=== PATIENT | male | born 1955 | race Caucasian/White ===

== ENCOUNTER 2017-03-11 06:57 | Day surgery (SDC) | payer OTHER ==
[~2017-03-11] VITALS: Ht 182.9 cm; Wt 109.1 kg
[~2017-03-11 06:57] MED LIST: GLIM1TAB2 PO; LIDOCAINE 1% (10mg/ml) 2ml SDV INJ ONE; NORMAL SALINE 1,000 ML IV ONE
--- OUTSIDE RECORDS SUMMARY | 2017-03-11 07:01 | XMS REPORT | Referral Summary ---
Author Author [facility], [facility] Organization [facility] Address Unknown Phone Unavailable Care Team Providers Care Sail Cutter Name Role Phone Miquel Durbin Primary Care Physician [phone] Encounter VC Date(s): 05/02/15 - 05/02/15 [facility] [address] [place] [address] Discharge Diagnosis: DM II (diabetes mellitus, type II), controlled Discharge Diagnosis: Albuminuria Discharge Diagnosis: Plantar wart of right foot Discharge Disposition: 01-Home or Self Care Attending Physician: Miquel Durbin DO Admitting Physician: Miquel Durbin DO Vital Signs Most recent to 1 oldest [Reference Range]: Temperature Tympanic 36.5 degC [36.6-38.1 degC] *LOW* (05/02/15 8:10 AM) Peripheral Pulse 68 bpm Rate [60-100 bpm] (05/02/15 8:10 AM) Blood Pressure 122/68 mmHg [90-140/60-90 mmHg] (05/02/15 8:10 AM) SpO2 96 % (05/02/15 8:10 AM) Problem List No data available for this section Allergies, Adverse Reactions, Alerts No Known Medication Allergies Medications aspirin 81 mg oral tablet mg tabs, Oral, Daily, 0 Refill(s) Start Date: 11/01/15 Status: Ordered Glucometer (DME) DME Item Accu-Chek Sofia meter To test 1 day per week and prn Diag E11.9, See Instructions, # 1 Each, 0 Refill(s), Pharmacy: [facility] #[id number], Accu-Chek Sofia meter; To test 1 day per week and prn; Diag E11.9, Supply Start Date: 11/04/15 Status: Ordered metFORMIN 500 mg oral tablet 500 mg 1 tabs, Oral, BID, # 180 tabs, 3 Refill(s), Pharmacy: [facility] # [id number], 1 tabs Oral BID Start Date: 11/01/15 Status: Ordered Miscellaneous DME DME Item Accue-chek sofia meter tests strips or comparable Diag - E11.9, See Instructions, # 50 Each, 5 Refill(s), Pharmacy: [facility] #[id number], Accue- chek sofia meter tests strips or comparable; Diag - E11.9, Supply Start Date: 11/03/15 Status: Ordered Results No data available for this section Immunizations Vaccine Date Refusal Reason tetanus/diphth/pertuss (Tdap) adult/adol 11/19/14 Procedures Procedure Date Related Diagnosis Body Site Destruction (eg, laser surgery, 05/02/15 electrosurgery, cryosurgery, chemosurgery, surgical curettement), of benign lesions other than skin tags or cutaneous vascular proliferative lesions; up to 14 lesions Social History Social History Type Response Smoking Status Current every day smoker Assessment and Plan Extracted from: Title: Office Visit Note Author: Miquel Durbin DO Date: 05/02/15 Assessment/Plan Albuminuria 1. He is having more albuminuria than previous. 2. At loss office visit I had recommended an REED inhibitor which he declined. 3. We'll refer him to nephrology for further evaluation and recommendations. Ordered: Office Visit Level 4 Est 83595 DM II (diabetes mellitus, type II), controlled 1. His blood sugars are well controlled at this time, hemoglobin A1c is 6.2 this is slightly increased from 6.0 , 6 months ago. 2. Recommend recheck hemoglobin A1c, complete metabolic profile, and lipid profile in 6 months. 3. Continue checking fasting blood sugars once per week, follow-up if blood sugars are running high. Ordered: Office Visit Level 4 Est 17788 Plantar wart of right foot 1. Plantar wart s were debulked using a derma blade followed by cryotherapy treatment. 2. Patient tolerated treatment well, wound care instructions provided. Ordered: Destruction, Of Flat Warts, Molluscum Contagiosum, Or Milia; Up To 14 Lesions 65612 Office Visit Level 4 Est 34176
--- OUTSIDE RECORDS SUMMARY | 2017-03-11 07:01 | XMS REPORT | Continuity of Care Document ---
Author Author [facility] Organization [facility] Address Unknown Phone Unavailable Allergies Active Description Code Type Severity Reaction Onset Reported/Identified Relationship to Patient Clinical Status Yes No Known Medication Allergies NKMA N/A N/A 05/03/2014 Medications Problems Procedures Results Encounters ACCT No. Visit Date/Time Discharge Status Pt. Type Provider Facility Loc./Unit Complaint [id number] 01/28/2017 08:03:00 2016 23:59:00 DIS Outpatient Miquel Durbin [facility] 6 month CDM DM [id number] 12/05/2016 10:52:00 2016 23:59:00 DIS Outpatient Miquel Durbin [facility] FM cough.congestion.fatique.headache [id number] 07/30/2016 07:59:00 2015 23:59:00 DIS Outpatient Miquel Durbin [facility] FM TCPA 3 month CDM DM [id number] 04/27/2016 07:45:00 2015 23:59:00 DIS Outpatient Miquel Durbin [facility] FM 6MTH WME CDM DM2 FROM 1.5.16 [id number] 05/02/2015 08:05:00 2014 23:59:00 DIS Outpatient Miquel Durbin [facility] New FM 6MTH RCK CDM DM [id number] 11/19/2014 08:19:00 2014 23:59:00 DIS Outpatient Miquel Durbin [facility] New FM MED CK [id number] 11/01/2015 08:07:00 ACT Outpatient Miquel Durbin [facility] FM 6 mth CDM
--- OUTSIDE RECORDS SUMMARY | 2017-03-11 07:02 | XMS REPORT | Referral Summary ---
Author Author [facility] Organization [facility] Address Unknown Phone Unavailable Care Team Providers Care Program Project Manager Name Role Phone Miquel Durbin Primary Care Physician [phone] Encounter VC Date(s): 05/02/15 - 05/02/15 [facility] [address] [place] [address] Discharge Diagnosis: DM II (diabetes mellitus, [...] Reactions, Alerts No Known Medication Allergies Medications FREESTYLE 28G LANCETS 0 Refill(s) Start Date: 05/03/14 Status: Ordered metFORMIN 500 mg oral tablet 1 tabs, Oral, BID, # 180 tabs, 2 Refill(s), Pharmacy: [facility] #[id number], 1 tabs Oral BID Start Date: 11/19/14 Status: Ordered ONE TOUCH DELICA 33G LANCETS 0 Refill(s) Start Date: 05/03/14 Status: Ordered One Touch Ultra One Touch Ultra, See Instructions, One Touch Ultra diabetic test strips. Patient tests once a week and prn. Diag: Diabetes 250.00, # 25 Each, 2 Refill( s), Pharmacy: [facility] #[id number], One Touch Ultra diabetic test strips. Patient tests once a... Start Date: 11/19/14 Status: Ordered ONE TOUCH ULTRA 2 GLUCOSE SYST 0 Refill(s) Start Date: 05/03/14 Status: Ordered ONE TOUCH ULTRA TEST STRIPS 0 Refill(s) Start Date: 05/03/14 Status: Ordered ONE TOUCH ULTRASOFT LANCETS 0 Refill(s) Start Date: 05/03/14 Status: Ordered Results No data available for [...] recommendations. Ordered: Office Visit Level 4 Est 72359 DM II (diabetes mellitus, type II), controlled [...] high. Ordered: Office Visit Level 4 Est 15557 Plantar wart of right foot 1. Plantar wart s were debulked using a derma blade followed by cryotherapy treatment. 2. Patient tolerated treatment well, wound care instructions provided. Ordered: Destruction, Of Flat Warts, Molluscum Contagiosum, Or Milia; Up To 14 Lesions 65295 Office Visit Level 4 Est 38322
--- OUTSIDE RECORDS SUMMARY | 2017-03-11 07:02 | XMS REPORT | Referral Summary ---
Author Author [facility] Organization [facility] Address Unknown Phone Unavailable Care Team Providers Care Immigration Services Officer Name Role Phone Miquel Durbin Primary Care Physician [phone] Encounter VC Date(s): 11/01/15 - 11/01/15 [facility] [address] [place] [address] Discharge Diagnosis: Plantar warts Discharge Diagnosis: Well controlled type 2 diabetes mellitus Discharge Diagnosis: Tobacco use Discharge Diagnosis: Proteinuria Discharge Disposition: 01-Home or Self Care Attending Physician: Miquel Durbin DO Admitting Physician: Miquel Durbin DO Vital Signs Most recent to 1 oldest [Reference Range]: Temperature Tympanic 36.2 degC [36.6-38.1 degC] *LOW* (11/01/15 8:13 AM) Peripheral Pulse 68 bpm Rate [60-100 bpm] (11/01/15 8:13 AM) Blood Pressure 140/70 mmHg [90-140/60-90 mmHg] (11/01/15 8:13 AM) Problem List No data available for this section Allergies, Adverse Reactions, Alerts No Known Medication Allergies Medications aspirin 81 mg oral tablet mg tabs, Oral, Daily, 0 Refill(s) Start Date: 11/01/15 Status: Ordered FREESTYLE 28G LANCETS 0 Refill(s) Start Date: 05/03/14 Status: Ordered metFORMIN 500 mg oral tablet 500 mg 1 tabs, Oral, BID, # 180 tabs, 3 Refill(s), Pharmacy: [facility] # [id number], 1 tabs Oral BID Start Date: 11/01/15 Status: Ordered ONE TOUCH DELICA 33G LANCETS 0 Refill(s) Start Date: 05/03/14 Status: Ordered One Touch Ultra One Touch Ultra, See Instructions, One Touch Ultra diabetic test strips. Patient tests once a week and prn. Diag: Diabetes E11.9, # 50 Each, 10 Refill(s ), Pharmacy: [facility] #[id number], One Touch Ultra diabetic test strips. Patient tests once a... Start Date: 11/01/15 Status: Ordered ONE TOUCH ULTRA 2 GLUCOSE SYST 0 Refill(s) Start Date: 05/03/14 Status: Ordered One touch ultra lancets One touch ultra lancets, See Instructions, lancets to test once per week and prn. Dispense 50 with refills available. Diag E11.9, # 50 Each, 10 Refill(s), Pharmacy: [facility] #[id number], lancets to test once per week and prn. Dispense 50 with r... Start Date: 11/01/15 Status: Ordered ONE TOUCH ULTRA TEST STRIPS 0 Refill(s) Start Date: 05/03/14 Status: Ordered Results No data available for this section Immunizations Vaccine Date Refusal Reason tetanus/diphth/pertuss (Tdap) adult/adol 11/19/14 Procedures Procedure Date Related Diagnosis Body Site Destruction (eg, laser surgery, 11/01/15 electrosurgery, cryosurgery, chemosurgery, surgical curettement), of benign lesions other than skin tags or cutaneous vascular proliferative lesions; up to 14 lesions Social History Social History Type Response Smoking Status Current every day smoker Assessment and Plan Extracted from: Title: Office Visit Note Author: Miquel Durbin DO Date: 11/01/15 Assessment/Plan Plantar warts 1. 4 plantar warts were treated today with cryotherapy. 2. Follow up for retreatment if the persist after a month. Ordered: Destruction, Of Flat Warts, Molluscum Contagiosum, Or Milia; Up To 14 Lesions 91051 Office Visit Level 4 Est 39858 Proteinuria 1. Repeat UA today. We will send a copy of the report to the mutuel department manager. Ordered: Office Visit Level 4 Est 60712 Tobacco use 1. Cessation recommended, he voices understanding. Ordered: Office Visit Level 4 Est 29975 Well controlled type 2 diabetes mellitus 1. A1C is well controlled. 2. Rest of labs are well controlled. 3. Repeat labs in 6 months. 4. He was set up for screening colonoscopy. 5. If the lesion on the scalp continues to be bothersome then I recommend Bx. If it needs excision then we plan on sending him to Dr Reed given the size of the lesion. Ordered: Office Visit Level 4 Est 43427 Orders: metFORMIN, 500 mg 1 tabs, Oral, BID, # 180 tabs, 3 Refill(s), Pharmacy : [facility] #[id number], 1 tabs Oral BID Misc Medication, One Touch Ultra, See Instructions, One Touch Ultra diabetic test strips. Patient tests once a week and prn. Diag: Diabetes E11.9, # 50 Each , 10 Refill(s), Pharmacy: [facility] #[id number], One Touch Ultra diabetic test strips. Patient tests once a... Misc Medication, One touch ultra lancets, See Instructions, lancets to test once per week and prn. Dispense 50 with refills available. Diag E11.9, # 50 Each , 10 Refill(s), Pharmacy: [facility] #[id number], lancets to test once per week and prn. Dispense 50 with r...
--- OUTSIDE RECORDS SUMMARY | 2017-03-11 07:02 | XMS REPORT | Referral Summary ---
Author Author [facility] Organization [facility] Address Unknown Phone Unavailable Care Team Providers Care Hot Stamp Operator Name Role Phone Miquel Durbin Primary Care Physician [phone] Encounter VC Date(s): 05/02/15 - 05/02/15 [facility] [address] [place] [address] Discharge Diagnosis: DM II (diabetes [...] BID, # 180 tabs, 2 Refill(s), Pharmacy: [facility] #[id number], 1 tabs Oral BID Start Date: 11/19/14 Status: Ordered ONE TOUCH DELICA 33G LANCETS 0 Refill(s) Start Date: 05/03/14 Status: Ordered One Touch Ultra One Touch Ultra, See Instructions, One Touch Ultra diabetic test strips. Patient tests once a week and prn. Diag: Diabetes 250.00, # 25 Each, 2 Refill( s), Pharmacy: [facility] #[id number], One Touch Ultra diabetic test strips. Patient [...] recommendations. Ordered: Office Visit Level 4 Est 50985 DM II (diabetes mellitus, type II), controlled [...] high. Ordered: Office Visit Level 4 Est 95499 Plantar wart of right foot 1. Plantar wart s were debulked using a derma blade followed by cryotherapy treatment. 2. Patient tolerated treatment well, wound care instructions provided. Ordered: Destruction, Of Flat Warts, Molluscum Contagiosum, Or Milia; Up To 14 Lesions 84216 Office Visit Level 4 Est 17817
--- OUTSIDE RECORDS SUMMARY | 2017-03-11 07:02 | XMS REPORT | Referral Summary ---
Author Organization Unknown Address Unknown Phone Unavailable Care Team Providers Care Bindery Machine Tender Name Role Phone Miquel Durbin Primary Care Physician [phone] Encounter VC Date(s): 11/19/14 - 11/19/14 [facility] [address] [place] [address] Discharge Diagnosis: Microalbuminuria Discharge Diagnosis: Need for Tdap vaccination Discharge Diagnosis: Diabetes type 2, controlled Discharge Disposition: Home or Self Care Attending Physician: Miquel Durbin DO Admitting Physician: Miquel Durbin DO Vital Signs Most recent to 1 oldest [Reference Range]: Temperature Tympanic 35.3 degC [36.6-38.1 degC] *LOW* (11/19/14 8:23 AM) Peripheral Pulse 52 bpm Rate [60-100 bpm] *LOW* (11/19/14 8:23 AM) Blood Pressure 122/65 mmHg [90-140/60-90 mmHg] (11/19/14 8:23 AM) Problem List No data available for this section Allergies, Adverse Reactions, Alerts No Known Medication Allergies Medications FREESTYLE 28G LANCETS 0 Refill(s) Start Date: 05/03/14 Status: Ordered metFORMIN 500 mg oral tablet 1 tabs, Oral, BID, # 180 tabs, 2 Refill(s), Pharmacy: [facility] #[id number], 1 tabs Oral BID Start Date: 11/19/14 Status: Ordered ONE TOUCH DELICA 33G LANCETS 0 Refill(s) Start Date: 05/03/14 Status: Ordered One Touch Ultra One Touch Ultra, See Instructions, One Touch Ultra diabetic test strips. Patient tests once a week and prn. Diag: Diabetes 250.00, # 25 Each, 2 Refill( s), Pharmacy: [facility] #[id number], One Touch Ultra diabetic test strips. Patient tests once a... Special Instructions: One Touch Ultra diabetic test strips. Patient tests once a week and prn. Diag: Diabetes 250.00 Start Date: 11/19/14 Status: Ordered ONE TOUCH ULTRA 2 GLUCOSE SYST 0 Refill(s) Start Date: 05/03/14 Status: Ordered ONE TOUCH ULTRA TEST STRIPS 0 Refill(s) Start Date: 05/03/14 Status: Ordered ONE TOUCH ULTRASOFT LANCETS 0 Refill(s) Start Date: 05/03/14 Status: Ordered Results No data available for this section Immunizations Vaccine Date Refusal Reason tetanus/diphth/pertuss (Tdap) adult/adol 11/19/14 Procedures No data available for this section Social History Social History Type Response Smoking Status Current every day smoker Assessment and Plan Extracted from: Title: Office Visit Note Author: Miquel Durbin DO Date: 11/19/14 Assessment/Plan Diabetes type 2, controlled 1. His hemoglobin A1c is well controlled at 6.0. Additionally his complete metabolic profile and lipid profile were normal. 2. He demonstrated microalbuminuria. I discussed the importance of this with him in detail, all questions were answered. I recommended starting him on a low dose of REED inhibitor however he declined starting any new medication. 3. We plan on rechecking urine microalbumin in 6 months, if it continues to be elevated then we plan on being more consistent on starting the REED inhibitor. 4. Tobacco cessation recommended. 5. Continue with healthy lifestyle changes. 6. In 6 months we plan on repeating hemoglobin A1c, complete metabolic profile and urine microalbumin. Ordered: Office Visit Level 4 Est 35640 Microalbuminuria As above, repeat urine microalbumin in 6 months. If continued presentation then we will be insistent and starting REED inhibitor. If his renal function decreases then we plan on sending him to ornamental painter. Ordered: Office Visit Level 4 Est 29323 Need for Tdap vaccination Given today. Ordered: Office Visit Level 4 Est 98357 Orders: metFORMIN, 1 tabs, Oral, BID, # 180 tabs, 2 Refill(s), Pharmacy: [facility] #[id number], 1 tabs Oral BID Misc Medication, One Touch Ultra, See Instructions, One Touch Ultra diabetic test strips. Patient tests once a week and prn. Diag: Diabetes 250.00, # 25 Each , 2 Refill(s), Pharmacy: [facility] #[id number], One Touch Ultra diabetic test strips. Patient tests once a...
--- OUTSIDE RECORDS SUMMARY | 2017-03-11 07:02 | XMS REPORT | Referral Summary ---
Author Author [facility] Organization [facility] Address Unknown Phone Unavailable Care Team Providers Care Platform Beater Name Role Phone Miquel Durbin Primary Care Physician [phone] Encounter VC Date(s): 12/05/16 - 12/05/16 [facility], [address] [place] [address] Discharge Diagnosis: COPD with acute bronchitis Discharge Diagnosis: Tobacco abuse Discharge Diagnosis: Urinary frequency Discharge Disposition: 01-Home or Self Care Attending Physician: Miquel Durbin DO Admitting Physician: Miquel Durbin DO Vital Signs Most recent to 1 oldest [Reference Range]: Temperature Tympanic 37.2 degC [36.6-38.1 degC] (12/05/16 11:04 AM) Peripheral Pulse 80 bpm Rate [60-100 bpm] (12/05/16 11:04 AM) Blood Pressure 130/70 mmHg [90-140/60-90 mmHg] (12/05/16 11:04 AM) SpO2 96 % (12/05/16 11:04 AM) Problem List No data available for this section Allergies, Adverse Reactions, Alerts No Known Medication Allergies Medications glimepiride 4 mg oral tablet 4 mg 1 tabs, Oral, Daily, # 90 tabs, 3 Refill(s), Pharmacy: [facility] # [id number], 1 tabs Oral Daily,x90 days Start Date: 07/30/16 Stop Date: 07/25/17 Status: Ordered Glucometer (DME) DME Item Accu-Chek Sofia meter To test 1 day per week and prn Diag E11.9, See Instructions, # 1 Each, 0 Refill(s), Pharmacy: [facility] #[id number], Accu-Chek Sofia meter; To test 1 day per week and prn; Diag E11.9, Supply Start Date: 11/04/15 Status: Ordered Miscellaneous DME DME Item Accue-chek sofia meter tests strips or comparable Diag - E11.9, See Instructions, # 50 Each, 5 Refill(s), Pharmacy: [facility] #[id number], Accue- chek sofia meter tests strips or comparable; Diag - E11.9, Supply Start Date: 11/03/15 Status: Ordered Nyquil Cold & Flu Nighttime oral liquid See Instructions, as needed for cold symptoms, mL Oral q6hr, 0 Refill(s) Start Date: 12/05/16 Status: Ordered predniSONE 20 mg oral tablet 20 mg 1 tabs, Oral, Daily, X 5 days, # 5 tabs, 0 Refill(s), Pharmacy: [facility] #[id number], 1 tabs Oral Daily,x5 days Start Date: 12/05/16 Stop Date: 12/10/16 Status: Ordered Sudafed See Instructions, Oral q6hr as needed, 0 Refill(s) Start Date: 12/05/16 Status: Ordered Tessalon 200 mg oral capsule 200 mg 1 caps, Oral, TID, X 10 days, # 30 caps, 0 Refill(s), Pharmacy: [facility] #[id number], 1 caps Oral TID,x10 days Start Date: 12/05/16 Stop Date: 12/15/16 Status: Ordered Results No data available for this section Immunizations Given and Recorded Vaccine Date Status Refusal Reason tetanus/diphth/pertuss (Tdap) adult/adol 11/19/14 Given zoster vaccine live 07/30/16 Given Procedures Procedure Date Related Diagnosis Body Site Lithotripsy1 Vasectomy 1removal of kidney stones Social History Social History Type Response Smoking Status Current every day smoker Assessment and Plan Extracted from: Title: Office Visit Note Author: Miquel Durbin DO Date: 12/05/16 Assessment/Plan 1.Tobacco abuse 1. Tobacco cessation recommended. 2. We discussed Chantix vs patches. He will think about it. Ordered: Office Visit Level 4 Est 19797 COPD with acute bronchitis 1. CXR is pending. 2. Prednisone 20mg daily for 5 days. 3. Z-Barney, take as directed. 4. Tessalon 200mg tid as needed for coughing. Ordered: benzonatate, 200 mg 1 caps, Oral, TID, X 10 days, # 30 caps, 0 Refill(s), Pharmacy: [facility] #[id number], 1 caps Oral TID,x10 days predniSONE, 20 mg 1 tabs, Oral, Daily, X 5 days, # 5 tabs, 0 Refill(s), Pharmacy: [facility] #[id number], 1 tabs Oral Daily,x5 days Office Visit Level 4 Est 34883 XR Chest 2 Views Addendum by [employer], Increased urinary frequency over the last couple of months. Miquel DSOUZA on . We will order a UA and PSA. November 29. If this continues then we plan on referring him to urologist for farther evaluation. 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
--- OUTSIDE RECORDS SUMMARY | 2017-03-11 07:02 | XMS REPORT | Referral Summary ---
Author Author [facility] Organization [facility] Address Unknown Phone Unavailable Care Team Providers Care Director Private Name Role Phone Miquel Durbin Primary Care Physician [phone] Encounter VC Date(s): 05/02/15 - 05/02/15 [facility] [address] [place] [address] Discharge Diagnosis: DM II (diabetes mellitus, type [...] BID, # 180 tabs, 2 Refill(s), Pharmacy: [facility] #[id number], 1 tabs Oral BID Start Date: 11/19/14 Status: Ordered ONE TOUCH DELICA 33G LANCETS 0 Refill(s) Start Date: 05/03/14 Status: Ordered One Touch Ultra One Touch Ultra, See Instructions, One Touch Ultra diabetic test strips. Patient tests once a week and prn. Diag: Diabetes 250.00, # 25 Each, 2 Refill( s), Pharmacy: [facility] #[id number], One Touch Ultra diabetic test strips. Patient [...] recommendations. Ordered: Office Visit Level 4 Est 13418 DM II (diabetes mellitus, type II), controlled [...] high. Ordered: Office Visit Level 4 Est 95874 Plantar wart of right foot 1. Plantar wart s were debulked using a derma blade followed by cryotherapy treatment. 2. Patient tolerated treatment well, wound care instructions provided. Ordered: Destruction, Of Flat Warts, Molluscum Contagiosum, Or Milia; Up To 14 Lesions 88415 Office Visit Level 4 Est 55956
--- OUTSIDE RECORDS SUMMARY | 2017-03-11 07:02 | XMS REPORT | Referral Summary ---
Author Author [facility], [facility] Organization [facility] Address Unknown Phone Unavailable Care Team Providers Care Manager Financial Services Name Role Phone Miquel Durbin Primary Care Physician [phone] Encounter VC Date(s): 05/02/15 - 05/02/15 [facility] [address] [place] [id number] Discharge Diagnosis: DM II (diabetes mellitus, type [...] BID, # 180 tabs, 2 Refill(s), Pharmacy: [facility] #[id number], 1 tabs Oral BID Start Date: 11/19/14 Status: Ordered ONE TOUCH DELICA 33G LANCETS 0 Refill(s) Start Date: 05/03/14 Status: Ordered One Touch Ultra One Touch Ultra, See Instructions, One Touch Ultra diabetic test strips. Patient tests once a week and prn. Diag: Diabetes 250.00, # 25 Each, 2 Refill( s), Pharmacy: [facility] #[id number], One Touch Ultra diabetic test strips. Patient [...] recommendations. Ordered: Office Visit Level 4 Est 02492 DM II (diabetes mellitus, type II), controlled [...] high. Ordered: Office Visit Level 4 Est 22717 Plantar wart of right foot 1. Plantar wart s were debulked using a derma blade followed by cryotherapy treatment. 2. Patient tolerated treatment well, wound care instructions provided. Ordered: Destruction, Of Flat Warts, Molluscum Contagiosum, Or Milia; Up To 14 Lesions 70401 Office Visit Level 4 Est 82339
--- OUTSIDE RECORDS SUMMARY | 2017-03-11 07:02 | XMS REPORT | Referral Summary ---
Author Author [facility] Organization [facility] Address Unknown Phone Unavailable Care Team Providers Care Fish Egg Packer Name Role Phone Miquel Durbin Primary Care Physician [phone] Encounter VC Date(s): 05/02/15 - 05/02/15 [facility] [address] [place] [id number] Discharge Diagnosis: DM II (diabetes [...] BID, # 180 tabs, 2 Refill(s), Pharmacy: [facility] #[id number], 1 tabs Oral BID Start Date: 11/19/14 Status: Ordered ONE TOUCH DELICA 33G LANCETS 0 Refill(s) Start Date: 05/03/14 Status: Ordered One Touch Ultra One Touch Ultra, See Instructions, One Touch Ultra diabetic test strips. Patient tests once a week and prn. Diag: Diabetes 250.00, # 25 Each, 2 Refill( s), Pharmacy: [facility] #[id number], One Touch Ultra diabetic test strips. Patient [...] recommendations. Ordered: Office Visit Level 4 Est 57466 DM II (diabetes mellitus, type II), controlled [...] high. Ordered: Office Visit Level 4 Est 56523 Plantar wart of right foot 1. Plantar wart s were debulked using a derma blade followed by cryotherapy treatment. 2. Patient tolerated treatment well, wound care instructions provided. Ordered: Destruction, Of Flat Warts, Molluscum Contagiosum, Or Milia; Up To 14 Lesions 15565 Office Visit Level 4 Est 06100
--- OUTSIDE RECORDS SUMMARY | 2017-03-11 07:02 | XMS REPORT | Referral Summary ---
Author Author [facility] Organization [facility] Address Unknown Phone Unavailable Care Team Providers Care Volunteer Manager Name Role Phone Miquel Durbin Primary Care Physician [phone] Encounter VC Date(s): 07/30/16 - 07/30/16 [facility] [address] [place] [id number] Discharge Diagnosis: Controlled type 2 diabetes mellitus Discharge Diagnosis: Stage III chronic kidney disease Discharge Diagnosis: Tobacco use Discharge Disposition: 01-Home or Self Care Attending Physician: Miquel Durbin DO Admitting Physician: Miquel Durbin DO Vital Signs Most recent to 1 oldest [Reference Range]: Temperature Tympanic 36.2 degC [36.6-38.1 degC] *LOW* (07/30/16 8:15 AM) Peripheral Pulse 78 bpm Rate [60-100 bpm] (07/30/16 8:15 AM) Respiratory Rate 18 br/min [14-20 br/min] (07/30/16 8:15 AM) Blood Pressure 120/68 mmHg [90-140/60-90 mmHg] (07/30/16 8:15 AM) Problem List No data available for this section Allergies, Adverse Reactions, Alerts No Known Medication Allergies Medications aspirin 81 mg oral tablet mg tabs, Oral, Daily, 0 Refill(s) Start Date: 11/01/15 Status: Ordered glimepiride 4 mg oral tablet 4 mg 1 tabs, Oral, Daily, # 90 tabs, 3 Refill(s), Pharmacy: [facility] # [id number], 1 tabs Oral Daily,x90 days Start Date: 07/30/16 Stop Date: 07/25/17 Status: Ordered Glucometer (DME) DME Item Accu-Chek Sofia meter To test 1 day per week and prn Diag E11.9, See Instructions, # 1 Each, 0 Refill(s), Pharmacy: [facility] #[id number], Accu-Chek Sofia meter; To test 1 day per week and prn; Diag E11.9, Supply Start Date: 11/04/15 Status: Ordered Miscellaneous DME DME Item Accue-chek sofia meter tests strips or comparable Diag - E11.9, See Instructions, # 50 Each, 5 Refill(s), Pharmacy: [facility] #[id number], Accue- chek sofia meter tests strips or comparable; Diag - E11.9, Supply Start Date: 11/03/15 Status: Ordered Results No data available for this section Immunizations Vaccine Date Refusal Reason tetanus/diphth/pertuss (Tdap) adult/adol 11/19/14 zoster vaccine live 07/30/16 Procedures Procedure Date Related Diagnosis Body Site Lithotripsy1 Vasectomy 1removal of kidney stones Social History Social History Type Response Smoking Status Current every day smoker Assessment and Plan Extracted from: Title: Office Visit Note Author: Miquel Durbin DO Date: 07/30/16 Assessment/Plan 1.Controlled type 2 diabetes mellitus 1. His hemoglobin A1c was 5.8 this is well controlled 2. Continue with glipizide as previous 3. Check A1c, fasting lipids and complete metabolic profile in 6 months 4. Follow-up in 6 months for reevaluation Ordered: Comprehensive Metabolic Panel Hemoglobin A1c Lipid Panel Office Visit Level 4 Est 21254 2.Stage III chronic kidney disease 1. Avoid NSAIDs 2. Good hydration recommended 3. Weight loss recommended. 4. Good blood pressure control recommended Ordered: Office Visit Level 4 Est 63200 3.Tobacco use 1. Tobacco cessation recommended Ordered: Office Visit Level 4 Est 35294 Need for vaccination 1. Shingles vaccination given today Ordered: Office Visit Level 4 Est 49124
--- OUTSIDE RECORDS SUMMARY | 2017-03-11 07:02 | XMS REPORT | Referral Summary ---
Author Author [facility] Organization [facility] Address Unknown Phone Unavailable Care Team Providers Care Freelance Makeup Artist Name Role Phone Miquel Durbin Primary Care Physician [phone] Encounter VC Date(s): 05/02/15 - 05/02/15 [facility] [address] [place] [id number] Discharge Diagnosis: DM II (diabetes mellitus, [...] Refill(s), Pharmacy: [facility] #[id number], 1 tabs Oral BID Start Date: 11/19/14 Status: Ordered ONE TOUCH DELICA 33G LANCETS 0 Refill(s) Start Date: 05/03/14 Status: Ordered One Touch Ultra One Touch Ultra, See Instructions, One Touch Ultra diabetic test strips. Patient tests once a week and prn. Diag: Diabetes 250.00, # 25 Each, 2 Refill( s), Pharmacy: [facility] #[id number], One Touch Ultra diabetic test strips. Patient [...] recommendations. Ordered: Office Visit Level 4 Est 39360 DM II (diabetes mellitus, type II), controlled [...] high. Ordered: Office Visit Level 4 Est 01389 Plantar wart of right foot 1. Plantar wart s were debulked using a derma blade followed by cryotherapy treatment. 2. Patient tolerated treatment well, wound care instructions provided. Ordered: Destruction, Of Flat Warts, Molluscum Contagiosum, Or Milia; Up To 14 Lesions 30545 Office Visit Level 4 Est 82648
--- OUTSIDE RECORDS SUMMARY | 2017-03-11 07:02 | XMS REPORT | Referral Summary ---
Author Author [facility] Organization [facility] Address Unknown Phone Unavailable Care Team Providers Care Bag End Sewer Name Role Phone Miquel Durbin Primary Care Physician [phone] Encounter VC Date(s): 04/27/16 - 04/27/16 [facility] [address] [place] [id number] Discharge Diagnosis: Visit for [employer] check Discharge Diagnosis: DM type 2 causing CKD stage 3 Discharge Diagnosis: Tobacco user Discharge Disposition: 01-Home or Self Care Attending Physician: Miquel Durbin DO Admitting Physician: Miquel Durbin DO Vital Signs Most recent to 1 oldest [Reference Range]: Peripheral Pulse 79 bpm Rate [60-100 bpm] (04/27/16 7:56 AM) Blood Pressure 122/78 mmHg [90-140/60-90 mmHg] (04/27/16 7:56 AM) SpO2 96 % (04/27/16 7:56 AM) Problem List No data available for this section Allergies, Adverse Reactions, Alerts No Known Medication Allergies Medications aspirin 81 mg oral tablet mg tabs, Oral, Daily, 0 Refill(s) Start Date: 11/01/15 Status: Ordered glimepiride 4 mg oral tablet 4 mg 1 tabs, Oral, Daily, # 30 tabs, 3 Refill(s), Pharmacy: [facility] # [id number], 1 tabs Oral Daily Start Date: 04/27/16 Status: Ordered Glucometer (DME) DME Item Accu-Chek Sofia meter To test 1 day per week and prn Diag E11.9, See Instructions, # 1 Each, 0 Refill(s), Pharmacy: [facility] #[id number], Accu-Chek Sofia meter; To test 1 day per week and prn; Diag E11.9, Supply Start Date: 11/04/15 Status: Ordered Miscellaneous DME DME Item Accue-chek sofia meter tests strips or comparable Diag - E11.9, See Instructions, # 50 Each, 5 Refill(s), Pharmacy: [facility] #[id number], Accue- chek sofia meter tests strips or [...] smoker Assessment and Plan Extracted from: Title: RIVKA PACHECO for DM and CKD-3 Author: Miquel Durbin DO Date: 04/27/16 Assessment/Plan 1.Visit for well man health check 1. This is a well-developed but are 60 -year-old gentleman in relatively good health. 2. Healthy lifestyle changes recommended. 3. Tobacco cessation recommended. 4. He is up-to-date on his colonoscopy and immunizations. 5. Recommended CT of the chest for long history of tobacco use, he would like to hold off on that for now. 6. Recommended abdominal ultrasound for screening of AAA given his long history of smoking, he would like to hold off on that for now. 7. Weight loss recommended. 8. Follow-up yearly for wellness visit. 9. The lesion on his scalp and the right cheek appeared to be benign junctional nevus. If he continues to be concerned about these lesions then we plan on sending him to dermatology for evaluation and recommendations. Ordered: Periodic Comp Preventive Med 40 to 64 years Est 13959 2.Tobacco user 1. As above. Ordered: Periodic Comp Preventive Med 40 to 64 years Est 59063 Smoking and tobacco use cessation counseling visit 3 to 10 minutes 11514 3.DM type 2 causing CKD stage 3 1. GFR is consistent with CKD stage III. Recommended following up with Dr. Carbone for farther evaluation and management for chronic renal failure. 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 2. We will discontinue metformin secondary to worsening GFR and creatinine. Ordered: Periodic Comp Preventive Med 40 to 64 years Est 20847 Diabetes type 2, controlled 1. His A1c is 6.2, this is well controlled. 2. Since his GFR was 46 and his creatinine is 1.54, recommendation is to discontinue metformin. 3. He was started on glimepiride 4 mg daily. In the checking blood sugars 3 times per week and if he's feeling ill to ensure that he is not hypoglycemic. If his blood sugars start falling below 70 then my recommendation is to decrease the glimepiride to 2 mg daily. 4. Diet modification and exercise recommended. 5. Recheck A1c, complete metabolic profile, urine albumin creatinine ratio in 3 months. Ordered: Periodic Comp Preventive Med 40 to 64 years Est 61318 Orders: glimepiride, 4 mg 1 tabs, Oral, Daily, # 30 tabs, 3 Refill(s), Pharmacy: [facility] #[id number], 1 tabs Oral Daily
[2017-03-11 07:09] VITALS: Ht 182.9 cm; Wt 109.1 kg
[2017-03-11 07:10] VITALS: BP 127/69; PULSE 51; RESP 13; TEMP 98.5; O2SAT 94
--- NOTE | 2017-03-11 07:43 | ANESPREOP ---
Anesthesia Record Date and Time DATE: 03/11/17 TIME: 07:41 Pre-Op Diagnosis crcs Proposed Surgical Procedure colonoscopy Allergies: Coded Allergies: No Known Drug Allergies (Verified Allergy, Unknown, 03/11/17) Ht/Wt/BMI Height: 6 ' 0.00 " Weight: 109.100 kg BMI: 32.6 kg/m2 Vital Signs Date Time Temp Pulse Resp B/P Pulse Ox O2 Delivery O2 Flow Rate FiO2 03/11/17 07:10 98.5 51 13 127/69 94 Room Air Medications Glimepiride (Glimepiride) 1 Mg Tablet, 1 MG PO DAILY, (Reported) Last Taken: on 03/10/17 0800 Currently on Beta Tab: No Medical/Surgical History Anesthesia PMH: Reports: *Diabetes (NIDDM), Obesity, Denies: Anesthesia Reactions (no known airway issues), Arthritis, Cancer, Clotting Problems, Glaucoma, Malignant Hyperthermia, Renal Disease, Sleep Apnea, Thyroid Disease Smoking Status: Current every day smoker Has pt. smoked today?: No Use Chewing Tobacco?: No Second Hand Exposure: No Substance Use Type: does not use Substance last used: unknown Alcohol Intake: a few times a week Past Surgical History Orthopedic Surgeries: Abdominal Surgeries: Genitourinary Surgeries: Yes - lithotripsy Cardiac Surgeries: Endocrine Surgeries: Reproductive Surgeries: Yes - vasectomy Neurological Surgeries: Ear Surgeries: Nose Surgeries: Throat Surgeries: Other Surgeries: No Anesthesia Adverse Reactions: FOUND none Family Hx of Anesthesia Advers: none Hx of Motion Sickness: No Pertinent Findings EKG Rhythm: Sinus Rhythm Physical Exam Respiratory: Bilat breath sounds equal, Lungs clear Cardiovascular: FOUND Regular rate, rhythm, FOUND No murmur Airway Assessment Mallampati Score: II TMD: 3 Fingerbreadths Neck Extension: Good Overall Assessment: No Airway Concerns ASA: 2 Plan Anesthesia Plan: TIVA Discussion Discussed risks/options/alternatives of anesthesia and questions answered. Patient consents. Nursing pain assessment noted. Present: Spouse Attestation Statement Prior to the delivery of any anesthetic medication, I examined the patient, developed the plan, obtained the patient's consent and discussed the risk and benefits of the procedure with the patient/guardian. MARILU NIETO CRNA March 11, 2017 07:43
[2017-03-11] MEDS ORDERED: PROPOFOL 500mg 50 ML IV ONE (09:47)
[2017-03-11] MEDS ORDERED: LIDOCAINE 1% (10mg/ml) 2ml SDV ONE (09:47)
[2017-03-11 10:19] VITALS: BP 115/56; PULSE 57; RESP 28; TEMP 97.9; O2SAT 98
[2017-03-11 10:30] VITALS: BP 121/59; PULSE 54; RESP 19; O2SAT 97
[2017-03-11 10:40] VITALS: BP 127/64; PULSE 52; RESP 16; TEMP 96.5; O2SAT 97
--- NOTE | 2017-03-11 11:18 | ANESPO ---
Post-Op Note Date 03/11/17 Time: 11:16 Status Pt Participated in Evaluation: Pt participated in person Vital Signs Date Time Temp Pulse Resp B/P Pulse Ox O2 Delivery O2 Flow Rate FiO2 03/11/17 10:40 96.5 52 16 127/64 97 Room Air Respiratory Function: Airway patent, Regular respirations Cardiovascular Function: Regular pulse Mental Status: Alert/oriented Pain Level Intensity: 0 (0) Hydration: Taking po fluids Complications during Recovery None apparent Post-Anesthesia Notes pt. ferny. well Follow-Up Instructions Instructions Per Surgeon Additional Information pt. left shorty after MARILU NIETO CRNA March 11, 2017 11:18
--- NOTE | 2017-03-11 12:57 | OPNOTEF ---
DATE OF SERVICE 03/11/2017 SURGEON Luis A Reed MD PREOPERATIVE DIAGNOSIS Colorectal cancer screening. POSTOPERATIVE DIAGNOSIS Colorectal cancer screening, minimal sigmoid diverticulosis, colonic polyps located at 20, 35, and 50 cm from the anal verge, ascending colon x3. PROCEDURE Colonoscopy with polypectomies via snare polypectomy technique and cold biopsy forceps technique. ANESTHESIA TIVA BRIEF HISTORY/INDICATIONS Mr. Lucas is a 61-year-old gentleman who presents today to undergo a colonoscopy to serve as a portion of his overall colorectal cancer screening/prevention. For completeness please refer to notes included in the patient's chart. FINDINGS Upon colonoscopy, the patient was found to have a few scattered diverticula within sigmoid colon region. He was found to have polyps located at 20, 35 and 50 cm from the anal verge. These polyps were on the order of about 8 mm to 1 cm in dimension and were removed in their entirety via snare polypectomy technique and placed within separate containers. The patient was found have three synchronous more diminutive appearing colonic polyps located within the proximal ascending colon. These polyps were on the order of about 5-6 mm in diameter and removed in their entirety via cold biopsy technique and placed within a single container. There was no evidence for angiodysplastic lesions or maisha malignancies. DESCRIPTION OF PROCEDURE After informed consent was obtained, the patient was brought to the endoscopy suite and placed on the table in left lateral decubitus position. The patient subsequently underwent total intravenous anesthesia by the nurse therapist asst per my request. Formal time-out was then completed. Next, a digital rectal examination was performed. Normal sphincter tone. No rectal masses were appreciated. An Olympus colonoscope was inserted through the anus and advanced through the lumen of the colon under direct visualization at all times until the cecum was ascertained. Triangulation of the teniae coli, ileocecal valve and appendiceal lumen were all visualized. Scope was then slowly withdrawn. Within the proximal ascending colon, the patient was found have three polyps as discussed above that were all on the order of about 5 mm in diameter and removed in their entirety via cold biopsy technique. Scope was then slowly withdrawn and a few scattered diverticula were noted within the sigmoid colon region. There was no evidence for angiodysplastic lesions or maisha malignancies. Three additional polyps were located at 50 cm, 35 cm, and 20 cm from the anal verge. These polyps were slightly larger, on the order of about 8 mm to 1 cm in dimension. Each polyp was removed via snare polypectomy technique and suctioned into a colonic trap and placed within separate containers. Colonoscope was then continued to be withdrawn until it was brought forth back to the rectal vault. A J-maneuver was then performed. No worrisome perianal pathology was noted. Scope was allowed to straighten and withdrawn through the anal verge. The patient tolerated the procedure without difficulty and was sent back to the preop area in stable condition. Await the biopsy results from today's polypectomies and will proceed accordingly with further recommendations thereafter. OLGA
== END 2017-03-11 10:50 | disposition home or self-care (01) ==
LOC: SCU 06:57
PROVIDERS: ATTEND Surgery
DX: Z12.11 Encounter for screening for malignant neoplasm of colon (principal); D12.5 Benign neoplasm of sigmoid colon; D12.2 Benign neoplasm of ascending colon; K51.40 Inflammatory polyps of colon without complications; K57.30 Diverticulosis of large intestine without perforation or abscess without bleeding; E11.9 Type 2 diabetes mellitus without complications; Z79.84 Long term (current) use of oral hypoglycemic drugs
CPT/HCPCS: 45380; 45385; 82948; J7030